=== PATIENT | female | born 1945 | race Caucasian/White ===

== ENCOUNTER → 2023-11-15 06:53 | Outpatient (REF) | payer MEDICARE, OTHER, SELFPAY ==
[2023-11-15 08:24] LABS: % Basophils 0.6 % (0-2); % Eosinophils 10.1 % (0-6); % Lymphocytes 41.4 % (20.5-51.1); % Monocytes 10.8 % (1.7-9.3); % Neutrophils 37.1 % (42.2-75.2); Absolute Eosinophils 0.5 10^3/uL (0-0.7); Absolute Monocytes 0.5 10^3/uL (0.1-0.6); Absolute Neutrophils 1.8 10^3/uL (1.4-6.5); Hematocrit 39.4 % (37.0-47.0); Hemoglobin 13.3 g/dL (12.0-16.0); Mean Corp Hgb Conc. 33.8 g/dL (33.0-37.0); Mean Corpuscular Hgb 30.5 pg (27.0-31.0); Mean Corpuscular Volume 90.4 fL (81.0-99.0); Mean Platelet Volume 9.5 fL (7.4-10.4); Nucleated Red Blood Cells % 0 %; Platelet Count 259 10^3/uL (130-400); Red Blood Cell Count 4.36 10^6/uL (4.20-5.40); Red Cell Dist. Width 12.7 % (11.5-14.5); White Blood Cell Count 4.9 10^3/uL (4.8-10.8)
[2023-11-15 08:41] LABS: ALT (SGPT) 19 U/L (0-35); AST (SGOT) 43 U/L (14-36); Albumin 4.3 g/dl (3.5-5.0); Alkaline Phosphatase 62 U/L (38-126); Blood Urea Nitrogen 20 mg/dl (7-17); Calcium 9.5 mg/dl (8.4-10.2); Carbon Dioxide 30 mmol/L (22-30); Chloride 102 mmol/L (98-107); Glucose 82 mg/dl (70-99); Potassium 4.5 mmol/L (3.5-5.1); Sodium 141 mmol/L (135-145); Total Bilirubin 0.8 mg/dl (0.2-1.3); Total Protein 7.3 g/dl (6.3-8.2); eGFR > 60.00
== END ==
LOC: REG 06:53
PROVIDERS: ATTENDING PHYSICIAN Internal Medicine Rheumatology; FAMILY PHYSICIAN Family Medicine; REFERRING PHYSICIAN Obstetrics & Gynecology Gynecology
DX: M25.552 Pain in left hip (principal); M81.0 Age-related osteoporosis without current pathological fracture; Z51.81 Encounter for therapeutic drug level monitoring
CPT/HCPCS: 36415; 80053; 85025

== ENCOUNTER → 2023-12-19 08:23 | Outpatient (REF) | payer MEDICARE, OTHER, SELFPAY | LOC: WDC 08:23 | PROVIDERS: ATTENDING PHYSICIAN Obstetrics & Gynecology Gynecology; FAMILY PHYSICIAN Family Medicine | DX: Z12.31 Encounter for screening mammogram for malignant neoplasm of breast (principal) | CPT/HCPCS: 77063; 77067 ==

== ENCOUNTER → 2023-12-22 10:06 | Outpatient (REF) | payer MEDICARE, OTHER, SELFPAY | LOC: RAD 10:06 | PROVIDERS: ATTENDING PHYSICIAN Nurse Practitioner Family; FAMILY PHYSICIAN Family Medicine | DX: M54.16 Radiculopathy, lumbar region (principal) | CPT/HCPCS: 72110 ==

== ENCOUNTER → 2024-01-16 06:27 | Outpatient (REF) | payer MEDICARE, OTHER, SELFPAY ==
[2024-01-16 08:16] LABS: % Basophils 0.6 % (0-2); % Eosinophils 6.7 % (0-6); % Immature Granulocytes 0.8 % (0-0.5); % Lymphocytes 43.5 % (20.5-51.1); % Monocytes 10.2 % (1.7-9.3); % Neutrophils 38.2 % (42.2-75.2); Absolute Eosinophils 0.4 10^3/uL (0-0.7); Absolute Lymphocytes 2.3 10^3/uL (1.2-3.4); Absolute Monocytes 0.5 10^3/uL (0.1-0.6); Hematocrit 38.6 % (37.0-47.0); Hemoglobin 13.4 g/dL (12.0-16.0); Mean Corp Hgb Conc. 34.7 g/dL (33.0-37.0); Mean Corpuscular Hgb 30.9 pg (27.0-31.0); Mean Corpuscular Volume 88.9 fL (81.0-99.0); Mean Platelet Volume 9.3 fL (7.4-10.4); Nucleated Red Blood Cells % 0 %; Platelet Count 315 10^3/uL (130-400); Red Blood Cell Count 4.34 10^6/uL (4.20-5.40); Red Cell Dist. Width 12.9 % (11.5-14.5); White Blood Cell Count 5.2 10^3/uL (4.8-10.8)
[2024-01-16 08:26] LABS: Erythrocyte Sed Rate 22 mm/hour (0-20)
[2024-01-16 08:29] LABS: ALT (SGPT) 20 U/L (0-35); AST (SGOT) 39 U/L (14-36); Albumin 4.4 g/dl (3.5-5.0); Alkaline Phosphatase 58 U/L (38-126); Blood Urea Nitrogen 19 mg/dl (7-17); Calcium 9.6 mg/dl (8.4-10.2); Carbon Dioxide 31 mmol/L (22-30); Chloride 100 mmol/L (98-107); Glucose 93 mg/dl (70-99); Potassium 4.5 mmol/L (3.5-5.1); Sodium 143 mmol/L (135-145); Total Bilirubin 0.3 mg/dl (0.2-1.3); Total Protein 7.3 g/dl (6.3-8.2); eGFR > 60.00
== END ==
LOC: REG 06:27
PROVIDERS: ATTENDING PHYSICIAN Internal Medicine Rheumatology; FAMILY PHYSICIAN Family Medicine
DX: M25.552 Pain in left hip (principal); M81.0 Age-related osteoporosis without current pathological fracture; Z51.81 Encounter for therapeutic drug level monitoring
CPT/HCPCS: 36415; 80053; 85025; 85652; 86140

== ENCOUNTER → 2024-02-07 07:54 | Outpatient (REF) | payer MEDICARE, OTHER, SELFPAY | LOC: RAD 07:54 | PROVIDERS: ATTENDING PHYSICIAN Internal Medicine Rheumatology; FAMILY PHYSICIAN Family Medicine; REFERRING PHYSICIAN Obstetrics & Gynecology Gynecology | DX: M81.0 Age-related osteoporosis without current pathological fracture (principal) | CPT/HCPCS: 77080 ==

== ENCOUNTER 2024-02-24 21:51 | Inpatient (IN) | payer MEDICARE, OTHER, SELFPAY ==
[2024-02-24] VITALS (8 sets, daily range): BP systolic 118–153; BP diastolic 54–87; BMI 18.9
[2024-02-24 17:57] LABS: ALT (SGPT) 19 U/L (0-35); AST (SGOT) 39 U/L (14-36); Albumin 4.6 g/dl (3.5-5.0); Alkaline Phosphatase 59 U/L (38-126); Blood Urea Nitrogen 21 mg/dl (7-17); Calcium 9.3 mg/dl (8.4-10.2); Carbon Dioxide 27 mmol/L (22-30); Chloride 103 mmol/L (98-107); Glucose 142 mg/dl (70-99); Potassium 4.8 mmol/L (3.5-5.1); Sodium 140 mmol/L (135-145); Total Bilirubin 0.6 mg/dl (0.2-1.3); Total Protein 7.7 g/dl (6.3-8.2); eGFR > 60.00
[2024-02-24] MEDS: NSS 1000 IV ×2 (20:07→23:09)
[2024-02-24 20:12] LABS: % Basophils 0.1 % (0-2); % Eosinophils 0.2 % (0-6); % Immature Granulocytes 0.2 % (0-0.5); % Lymphocytes 4.4 % (20.5-51.1); % Monocytes 2.3 % (1.7-9.3); % Neutrophils 92.8 % (42.2-75.2); Absolute Lymphocytes 0.4 10^3/uL (1.2-3.4); Absolute Monocytes 0.2 10^3/uL (0.1-0.6); Absolute Neutrophils 7.7 10^3/uL (1.4-6.5); Hemoglobin 13.3 g/dL (12.0-16.0); Mean Corp Hgb Conc. 34.1 g/dL (33.0-37.0); Mean Corpuscular Hgb 30.4 pg (27.0-31.0); Mean Platelet Volume 8.8 fL (7.4-10.4); Nucleated Red Blood Cells % 0 %; Platelet Count 279 10^3/uL (130-400); Red Blood Cell Count 4.38 10^6/uL (4.20-5.40); Red Cell Dist. Width 12.5 % (11.5-14.5); White Blood Cell Count 8.3 10^3/uL (4.8-10.8)
--- NOTE | 2024-02-24 20:14 | ED.GENMED ---
History of Present Illness
General
Chief Complaint: Abdominal Symptoms
Time Seen by Provider: 02/24/24 19:36
History of Present Illness
History of Present Illness:
TIME OF INITIAL ENCOUNTER: 7:30 PM
HPI: The patient initially came in because of vomiting with some degree of diarrhea and periods of nausea. However she also describes palpitations. She has had similar palpitations in the past. She has no history of atrial fibrillation. She
thinks she might be dehydrated.
EXAM:
GENERAL: Well appearing in no distress
HEENT: Moist oral mucosa
CARDIOVASCULAR: No murmurs, tachycardic heart rate, irregular rhythm, No chest wall tenderness
PULMONARY: No respiratory distress, breath sounds are clear and equal
ABDOMEN: Soft with no peritoneal signs, no tenderness
NEUROLOGIC: Excellent strength all extremities, no coordination deficits
PSYCHIATRIC: Appropriate mental status, normal insight and judgement
EXTREMITIES: Nontender, no edema, moves all extremities equally
SKIN: No rash, no lesions
NUMBER AND COMPLEXITY OF PROBLEMS ADDRESSED AT THE ENCOUNTER
� Chronic conditions affecting care: No significant past medical history
� Acute Exacerbation and/or Progression of Chronic Illness: This is an acute problem
� Differential Diagnosis includes: Dehydration, CARTER, electrolyte abnormality, atrial tachycardia/atrial fibrillation, thyroid disease
AMOUNT AND/OR COMPLEXITY OF DATA TO BE REVIEWED AND ANALYZED
� I performed an independent evaluation of and my interpretation is:
EKG: Sinus 131 however she frequently has atrial tachycardia/atrial fibrillation
CT:
X-rays:
Laboratory Studies: CBC and chemistries unremarkable, TSH normal
Other:
� Review of other/old records: I reviewed records, the patient had physical therapy regarding her left hip in April in
� Clinical information was obtained by an independent historian: I spoke to the at bedside
� Prescriptions/Medications Considered but not given:
� Further testing considered but not performed:
RISK OF COMPLICATIONS AND/OR MORBIDITY OR MORTALITY OF PATIENT MANAGEMENT
� Social determinants of health affecting care: Lives at home
� Discussion with other providers:
� Escalation of care including admission/observation vs risk of discharge considered: The patient initially came in because of nausea vomiting, and diarrhea. We gave a liter of fluid however my main concern is her heart rates in
the 150s at times. She probably has a sinus rhythm but frequently does have runs of atrial tachycardia/atrial fibrillation. She was placed on Cardizem bolus and drip. We did increase the dosage of the drip. Overall she feels improved and less
palpitations
ANY OTHER UPDATES:
Phy Exam
Physical Exam
Physical Exam:
See HPI
Course
Orders/Labs/Results
Orders:
Orders
02/24/24 17:34
Comprehensive Metabolic Panel Urgent
Magnesium Urgent
Comment: ADDON
TSH Reflex To Free T4 Urgent
Comment: ADD ON
02/24/24 19:41
Electrocardiogram (*1) Urgent
Reason for Study: Tachycardia
EKG- Treatment ONCE
0.9% Sodium Chloride 1000 ml [Nss] 1,000 ml IV BOLUS
02/24/24 20:05
Complete Blood Count/With Diff Urgent
02/24/24 20:07
Diltiazem HCl [Cardizem] 10 mg IV NOW STA
Diltiazem HCl [Cardizem] 10 mg IV NOW STA
02/24/24 20:09
Add On- LAB Urgent
Tests Added?: tsh reflex fT4
02/24/24 20:15
Add On- LAB Urgent
Tests Added?: magnesium
Diltiazem 125 mg/125 ml Nss [Cardizem] 125 mg in 125 ml IV PER PROTOCOL
Initial dose in mg/hr, then titrate:: 5
Titrate to keep:: Heart rate 80-100 bpm
Titrate by mg/hr:: 5 mg/hr
Frequency of titrations (minutes):: 15
Maximum dose in mg/hr:: 15
Abnormal Lab Results
02/24/24 02/24/24
17:34 20:05
Absolute Neuts (auto) 7.7 H 10^3/uL
(1.4-6.5)
Absolute Lymphs (auto) 0.4 L 10^3/uL
(1.2-3.4)
Neutrophils % 92.8 H %
(42.2-75.2)
Lymphocytes % 4.4 L %
(20.5-51.1)
BUN 21 H mg/dl
(7-17)
Creatinine 0.5 L mg/dL
(0.6-1.0)
Glucose 142 H mg/dl
(70-99)
AST 39 H U/L
(14-36)
02/24/24 20:05
02/24/24 17:34
Vital Signs
Initial and Last Documented VS:
Initial Vital Signs
Temp Pulse Resp BP Pulse Ox
37.1 C 91 16 153/85 100
02/24/24 17:27 02/24/24 17:27 02/24/24 17:27 02/24/24 17:27 02/24/24 17:27
Last Documented Vital Signs
Temp Pulse Resp BP Pulse Ox
37.1 C 89 16 142/63 100
02/24/24 17:27 02/24/24 20:30 02/24/24 20:34 02/24/24 20:30 02/24/24 20:30
*Critical Care Note
Total Time (30-74mins, 75-104mins- exclusive of procedures): Not Applicable
ED Attending Note
-
Portions of this chart may have been created with voice recognition software.� Occasional wrong word or��sound alike� substitutions may have occurred due to the inherent limitations of voice recognition software.
Discharge Plan
Departure
Patient Disposition: Admit
Date of Disposition: 02/24/24
Time of Disposition: :24
Presentation/result/management discussed w/ accepting MD/DO: Hospitalist
Discharge Problem:
Atrial tachycardia
Prescriptions:
No Action
hydrocodone-acetaminophen [Vicodin] 1 EACH tablet
1 tab PO Q6HPRN PRN (Reason: pain ) Qty: 12 0RF
Interventions
Interventions:
*Risk Screen - Suicide Last Done: 02/24/24 17:28
*Neglect/Abuse Screening Last Done: 02/24/24 17:28
HM-Uxykvf-Mqptwkqjjn Assessment Last Done: 02/24/24 20:36
Discharge Date and Time
Print Language: BOTSWANAN
[2024-02-24] MEDS: CARDIZEM 10 MG IV (20:17)
[2024-02-24] MEDS: CARDIZEM 125 IV (20:20)
[2024-02-24 20:48] LABS: Magnesium 1.9 mg/dl (1.6-2.3)
[2024-02-24 21:20] LABS: TSH Reflex To Free T4 0.77 uIU/ml (0.47-4.68)
--- NOTE | 2024-02-24 21:25 | HPS.HSE ---
Family Physician
-
Family Physician: Lucas Whitaker
Chief Complaint
-
Nausea vomiting diarrhea
History of Present Illness
78-year-old with no significant past medical history presented to us with nausea, non bloody vomiting, diarrhea since this afternoon. Her last episode of diarrhea and vomiting was around 5:00. Patient had salmon for dinner as today. For
breakfast she had bagel with peanut butter. Stated some abdominal cramps. Denied fever, chills, chest pain, short of breath. Patient also complained of palpitation. patient denied headache, dizziness or syncope. Patient denied dysuria hematuria.
Patient was noted sinus tachycardia in ER. On Cardizem drip. Admitting for further management
Medical History
Past Medical History
Past Medical History: Reports None
Past Surgical History: Reports Other
Additional Past Surgical History:
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
Wrist surgery
Social History
Tobacco: Non-smoker
Alcohol: Daily
Drug: None
Personal:
Living: With Family
Family History
Family History: Not pertinent
Allergies / Home Medications
Allergies reflects when Allergies were last updated in [employer].
Home Medications with original date entered in [employer]
Allergy/Medication List:
Allergies
Allergy/AdvReac Type Severity Reaction Status Date / Time
No Known Allergies Allergy Unverified 07/07/18 16:33
Home Medications
hydrocodone 5 mg-acetaminophen 300 mg tablet (Vicodin) 1 tab PO Q6HPRN PRN pain #12 tabs 07/07/18
Review of Systems
-
Constitutional: Reports No Symptoms
EENT: Reports No Symptoms
Respiratory: Reports No Symptoms
Cardiac: Reports Palpitations
Abdomen/GI: Reports Abdominal Pain, Nausea, Vomiting and Diarrhea
: Reports No Symptoms
Musculoskeletal: Reports No Symptoms
Skin: Reports No Symptoms
Neurological: Reports No Symptoms
Endocrine: Reports No Symptoms
Hematologic/Lymphatic: Reports No Symptoms
Psych: Reports No Symptoms
Physical Exam
Vital Signs
Vital Signs
Temp Pulse Resp BP Pulse Ox
98.8 F 89 16 142/63 100
02/24/24 17:27 02/24/24 20:30 02/24/24 20:34 02/24/24 20:30 02/24/24 20:30
Physical Exam
General: Well Developed, Well Nourished and No Apparent Distress
HEENT: NormoCephalic, Moist mucous membranes and Atraumatic
Respiratory: Clear
Cardiac: S1/S2 and Regular Rhythm; No Murmur or Rub
GI: Soft, Non Tender, Non Distended and Normal Bowel Sounds; No Organomegaly
Rectal: Deferred by Provider
Musculoskeletal: No Clubbing, No Cyanosis and No Edema
Skin: No Rash
Neuro: AO x 3 and Nonfocal/grossly intact
Psych: Calm
Laboratory Results
-
02/24/24 20:05
02/24/24 17:34
Laboratory Results
Total Bilirubin 0.6 mg/dl (0.2-1.3) 02/24/24 17:34
AST 39 U/L (14-36) H 02/24/24 17:34
ALT 19 U/L (0-35) 02/24/24 17:34
Alkaline Phosphatase 59 U/L (38-126) 02/24/24 17:34
Data Reviewed
-
Lab Data: Labs Reviewed by me
Impression/Plan
-
# Nausea vomiting diarrhea likely viral gastroenteritis
-Clear liquid diet advance as tolerated
-Zofran as needed for nausea vomiting
-Stool cultures
-Obtain COVID and flu
# Sinus tachycardia/runs of A-fib
-Cardizem drip
-EKG with sinus tachycardia
-Cardiology consult
# DVT prophylaxis
-Lovenox subcu
# CODE STATUS
-Full code
--- NOTE | 2024-02-24 21:48 | W.PN.UPDATE ---
Update Note
Progress Note Update
This note serves as an addendum to the H&P by endless track vehicle supervisor CRISTINO Lillian PLUMMER
HPI
78F No prior HX arrhythmia seen at ER:
- initial present with 6 episodes of non bilious vomiting, nausea , non bloody non watery loose diarrhea
- reports palpitation with HR as high as 150s-160s. Mostly sinus, but has runs of A Fib / atrial tachycardia.
- ER gave Diltiazem bolus and drip. Increasing dose of drip, HR improved to 100s
- denied contact exposure , no recent travelling
PHX:
HX Atrial tachycardia
Reviewed VS: unremarkable
PE
GENERAL: NAD
HEENT: Moist oral mucosa
CVS: regular tachycardia
Lungs: clear and equal
Abdomen: Soft with no peritoneal signs, no tenderness
FLAKEBOARD LINE TENDER: Excellent strength all extremities, no coordination deficits
Psych: normal insight and judgement
Ext: Nontender, no edema, moves all extremities equally
SKIN: No rash, no lesions
Data
Nl CBC
BUN 21
Cr 0.5
Nl TSH
Pending Covid
EKG
SINUS TACHYCARDIA WITH PREMATURE SUPRAVENTRICULAR COMPLEXES
NONSPECIFIC ST ABNORMALITY
ABNORMAL ECG
NO PREVIOUS ECGS AVAILABLE
ASSESSMENT & PLAN
Clinically suspect acute viral GE
- clear liquid & ADAT
- supportive care with IVF, anti emetics
- stool for Noro virus
Runs of A Fib / atrial tachycardia.
Mostly ST with NSR
- check Mg
- on Diltiazem gtt
- CBC Card consult
DVT Px: LMWH
Full code
IVU
[2024-02-24 21:59] LABS: COVID-19 Antigen Negative (Negative)
--- NOTE | 2024-02-24 23:04 | PTCARENOTE ---
received patient from the ED. spouse at the bedside. AAOx3. independent oob. patient denies phil n/v. denies any cp/sob/palps. Cardizem gtt decreased to 5 ml/hr. HR SR 70s. bp 118/56. denies any lightheadedness/dizziness. educated patient to inform
RN with any changes. oriented to room. call mckeon within reach.
[2024-02-25 03:11] VITALS: BP 106/48
[2024-02-25 04:00] LABS: Hematocrit 35.3 % (37.0-47.0); Hemoglobin 12.3 g/dL (12.0-16.0); Mean Corp Hgb Conc. 34.8 g/dL (33.0-37.0); Mean Corpuscular Hgb 31.1 pg (27.0-31.0); Mean Corpuscular Volume 89.4 fL (81.0-99.0); Platelet Count 259 10^3/uL (130-400); Red Blood Cell Count 3.95 10^6/uL (4.20-5.40); Red Cell Dist. Width 12.5 % (11.5-14.5); White Blood Cell Count 5.6 10^3/uL (4.8-10.8)
[2024-02-25 04:19] LABS: Blood Urea Nitrogen 15 mg/dl (7-17); Calcium 8.4 mg/dl (8.4-10.2); Carbon Dioxide 26 mmol/L (22-30); Chloride 106 mmol/L (98-107); Estimated Creatinine Clearance 60 ml/min; Glucose 118 mg/dl (70-99); HDL Cholesterol 76 mg/dl; LDL Cholesterol, Calculated 94 mg/dl; Potassium 3.9 mmol/L (3.5-5.1); Sodium 139 mmol/L (135-145); Total Cholesterol 181 mg/dl (50-199); Triglyceride 55 mg/dl (10-149); Very Low Density Lipoprotein 11 mg/dl (0-30); eGFR > 60.00
[2024-02-25 04:50] LABS: TSH 0.69 uIU/ml (0.47-4.68)
--- NOTE | 2024-02-25 06:38 | PTCARENOTE ---
patient remained SR overnight 70s. bp stable. cardizem gtt maintained. IVF infusing at 80 ml/hr. no complaints.
[2024-02-25 07:17] VITALS: BP 112/59
[2024-02-25] MEDS: PEPCID 20 MG PO ×2 (08:29→19:39)
--- NOTE | 2024-02-25 09:38 | PTCARENOTE ---
Assumed care at 0700. Patient awake and alert. Denies nausea or diarrhea. IVF and Cardizem infusing per MAR. Tolerating clear liquid diet. NSR HR 70. VSS. at bedside, call mckeon in reach
[2024-02-25 11:06] VITALS: BP 112/59
--- NOTE | 2024-02-25 11:41 | PTCARENOTE ---
formed brown stool collected for culture
--- NOTE | 2024-02-25 13:22 | W.PN.HOSP.TC ---
Today's Communication/Plan
-
Monitor vital signs
see plan
Stool studies positive for norovirus, supportive care
echo
cardiology to see
Assessment / Plan
Assessment / Plan
General: Well Developed, Well Nourished and No Apparent Distress
HEENT: NormoCephalic, Moist mucous membranes and Atraumatic
Respiratory: Clear
Cardiac: S1/S2 and Regular Rhythm; No Murmur or Rub
GI: Soft, Non Tender, Non Distended and Normal Bowel Sounds
Musculoskeletal: No Edema
Skin: No Rash
Neuro: AO x 3 and Nonfocal/grossly intact
Psych: Calm
Nausea vomiting diarrhea likely viral gastroenteritis
Advance diet to regular, no further episodes
stool studies + for norovirus. patient lives at [facility] and she reported other people there had similar symptoms
supportive care
-Zofran as needed for nausea vomiting
-Stool cultures pending
-Obtain COVID and flu
# Sinus tachycardia/runs of A-fib
no hx of SVT
-Cardizem drip
-EKG with sinus tachycardia
-Cardiology consult
check echo
# DVT prophylaxis
-Lovenox subcu
# CODE STATUS
-Full code
Anticipated Discharge: 24 - 48 hours
Subjective/Interval History
-
Date of Service: February 25, 2024
denies pain
Objective Data
-
Labs:
Laboratory Results
02/25/24
03:16
WBC 5.6
Hgb 12.3
Hct 35.3 L
Plt Count 259
Sodium 139
Potassium 3.9
Chloride 106
Carbon Dioxide 26
BUN 15
Creatinine 0.5 L
Glucose 118 H
Calcium 8.4
Vital Signs:
Vital Signs
Temp Pulse Resp BP Pulse Ox
99.1 F 67 20 112/59 98
02/25/24 11:04 02/25/24 09:45 02/25/24 11:04 02/25/24 07:17 02/25/24 11:04
I&O
02/24/24 02/25/24 02/26/24
06:59 06:59 06:59
Intake Total 150 / 150
Balance 150 / 150
--- NOTE | 2024-02-25 13:47 | PTCARENOTE ---
stool positive for Norovirus. Enhanced precautions maintained. Patient no longer having symptoms
--- NOTE | 2024-02-25 14:15 | CON.CAR ---
Consultation
Consultation Request
Date/Time Consultation Requested: 02/25/2024
Date/Time Consultation Performed: 02/25/2024
Reason for Consultation: Tachycardia
Medical History
-
Chief Complaint: Nausea vomiting runs of atrial fibrillation
History of Present Illness:
Nicki is a 78-year-old woman with no significant past medical history presented to the ER via paramedics with nausea vomiting and palpitations. Patient was noted to have runs of atrial fibrillation and route from [employer] to the ER. Patient was
noted to have runs of nonsustained atrial fibrillations.
Patient's heart rate was fluctuating anywhere from 100s to 160s beats per minute. Patient was started on diltiazem drip.
Patient's atrial fibrillation dissipated and now she is back in normal sinus rhythm. Nausea vomiting has also subsided. Cardiology was consulted for the new onset of atrial fibrillation.
Past Medical History
Past Medical History: None
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
Social History
Tobacco: Non-Smoker
Alcohol: Daily
Drug: None
Personal:
Family History
Family History: Reviewed & Not Pertinent
Allergies / Home Medications
Allergy/AdvReac Type Severity Reaction Status Date / Time
No Known Allergies Allergy Unverified 07/07/18 16:33
�Medication �Instructions �Recorded �Confirmed �Type
hydrocodone 5 mg-acetaminophen 300 1 tab PO Q6HPRN PRN pain #12 tabs 07/07/18 Rx
mg tablet (Vicodin)
Review of Systems
-
All other systems: Negative unless noted
Physical Exam
Vital Signs
Temp Pulse Resp BP Pulse Ox
99.1 F 67 20 112/59 98
02/25/24 11:04 02/25/24 09:45 02/25/24 11:04 02/25/24 07:17 02/25/24 11:04
Lab Results
02/25/24 03:16
02/25/24 03:16
Physical Exam
General: Well Developed, Well Nourished and No Apparent Distress
HEENT: Normocephalic, Anicteric and Moist Mucous Membranes
Respiratory: Clear and Non Labored Respirations
Cardiac: S1/S2 and Regular Rhythm; Negative Murmur
GI: Soft, Non Tender and Non Distended
Musculoskeletal: No Clubbing, No Cyanosis and No Edema
Skin: Warm and Dry
Neuro: Awake, Alert, Oriented and AO x 3
Psych: Calm
Impression / Plan
-
78-year-old woman presented with nausea vomiting with gastroenteritis and was noted to have nonsustained episodes of atrial fibrillation.
Atrial fibrillation
-Onset was abrupt and dissipated spontaneously after few minutes with multiple recurrences noted.
-Patient was treated with IV diltiazem drip in the ER
-Diltiazem drip is discontinued as patient is back in normal sinus rhythm.
-Tachycardia is resolved now.
-Cardiology was consulted for possibility of atrial fibrillation and further workup.
-Patient's [id number] score is 3 for age and gender
-The episodes of atrial fibrillation appears to be provoked with nausea and vomiting.
-At this time we will start patient on low-dose diltiazem 120 mg once a day
-Will obtain echo in the morning to rule out any structural heart disease
-We will also consider long-term monitoring with [employer] mobile or home EKG devices. If there is any more recurrences of atrial fibrillation noted, we can consider starting anticoagulation therapy with Eliquis.
-Patient's episodes of atrial fibrillation was provoked and were nonsustained. It is not clear if anticoagulation therapy would be helpful for her at this time.
Gastroenteritis
-Nausea vomiting secondary to fish ingestion yesterday.
-Nausea vomiting is subsided and back to normal
Data Reviewed
-
EKG: Tracing Personally Visualized and interpreted
Radiology: Report Reviewed by me
Labs: Labs Reviewed by me
Old Records: Reviewed
[2024-02-25 15:16] VITALS: BP 117/59
[2024-02-25] MEDS: NSS 1000 IV (17:39)
[2024-02-25] MEDS: LOVENOX 40 MG SC (17:39)
[2024-02-25] MEDS: ZOFRAN 4 MG IV (17:46)
[2024-02-25] MEDS: TYLENOL 650 MG PO (17:46)
--- NOTE | 2024-02-25 18:07 | PTCARENOTE ---
Patient complaints of mild nausea, tearful. Tylenol and Zofran given
[2024-02-25 19:30] VITALS: BP 131/68
[2024-02-25 23:35] VITALS: BP 114/56
--- NOTE | 2024-02-26 00:38 | PTCARENOTE ---
Patient NSR on monitoring specialist; IVF infusing; Patient OOB to bathroom to void without assistance; Patient denies pain at this time but does report nausea, no vomiting; Call mckeon within reach; Enhanced precautions maintained; Plan of care ongoing
[2024-02-26 04:34] VITALS: BP 134/74
[2024-02-26 04:58] LABS: % Basophils 0.3 % (0-2); % Eosinophils 5.5 % (0-6); % Immature Granulocytes 0.3 % (0-0.5); % Monocytes 17.7 % (1.7-9.3); % Neutrophils 51.2 % (42.2-75.2); Absolute Eosinophils 0.2 10^3/uL (0-0.7); Absolute Lymphocytes 0.9 10^3/uL (1.2-3.4); Absolute Monocytes 0.6 10^3/uL (0.1-0.6); Absolute Neutrophils 1.8 10^3/uL (1.4-6.5); Hematocrit 35.1 % (37.0-47.0); Hemoglobin 11.8 g/dL (12.0-16.0); Mean Corp Hgb Conc. 33.6 g/dL (33.0-37.0); Mean Corpuscular Hgb 30.8 pg (27.0-31.0); Mean Corpuscular Volume 91.6 fL (81.0-99.0); Mean Platelet Volume 8.9 fL (7.4-10.4); Nucleated Red Blood Cells % 0 %; Platelet Count 243 10^3/uL (130-400); Red Blood Cell Count 3.83 10^6/uL (4.20-5.40); Red Cell Dist. Width 12.7 % (11.5-14.5); White Blood Cell Count 3.4 10^3/uL (4.8-10.8)
[2024-02-26 05:36] LABS: ALT (SGPT) 15 U/L (0-35); AST (SGOT) 28 U/L (14-36); Albumin 3.2 g/dl (3.5-5.0); Alkaline Phosphatase 52 U/L (38-126); Blood Urea Nitrogen 10 mg/dl (7-17); Calcium 8.1 mg/dl (8.4-10.2); Carbon Dioxide 25 mmol/L (22-30); Chloride 110 mmol/L (98-107); Estimated Creatinine Clearance 60 ml/min; Glucose 91 mg/dl (70-99); Potassium 3.7 mmol/L (3.5-5.1); Sodium 142 mmol/L (135-145); Total Bilirubin 0.1 mg/dl (0.2-1.3); Total Protein 5.8 g/dl (6.3-8.2); eGFR > 60.00
[2024-02-26] MEDS: NSS IV (06:37)
--- NOTE | 2024-02-26 08:00 | PTCARENOTE ---
Assumed care of pt from prev nsg shift; Pt AAOx3 w/no c/o CP or SOB. Pt no longer nauseous or having diarrhea. Pt's VS stable w/HR in the 70's & BP 144/63. Pt remains SR on telemetry monitoring. Plan of care ongoing.
--- NOTE | 2024-02-26 08:10 | PTCARENOTE ---
Assumed care of pt from prev nsg shift; Pt AAOx3 w/no c/o CP or SOB this AM. Pt's Vs stable w/HR in the 70's-80's & BP 99/51 this AM. Pt remains in controlled Afib w/occas V-pacing on telemetry monitoring. Pt advised of plan of care for the day.
This RN explained the importance of increasing activity level as tolerated & explained after pt's ordered CXR she will need to be OOB to [facility] for some time today. Also explained to pt the need to D/C purewick & try to use BSC & BR instead. Pt
verbalized understanding. Pt w/call mckeon within reach & plan of care ongoing.
[2024-02-26 09:16] VITALS: BP 144/63
[2024-02-26] MEDS: PEPCID 20 MG PO (09:19)
--- NOTE | 2024-02-26 10:16 | W.PN.CD ---
Today's Communication / Plan
-
Start diltiazem 120 mg daily
Start apixaban 5 mg twice daily and await case management pricing
Okay for discharge if echo is unremarkable
Impression / Plan
-
78-year-old woman presented with nausea vomiting with gastroenteritis and was noted to have nonsustained episodes of atrial fibrillation.
Atrial fibrillation
-Onset was abrupt and dissipated spontaneously after few minutes with multiple recurrences noted. Patient also notes she has had similar symptoms in the past.
-Patient was treated with IV diltiazem drip in the ER
-Diltiazem drip is discontinued as patient is back in normal sinus rhythm.
-Tachycardia is resolved now.
-Cardiology was consulted for possibility of atrial fibrillation and further workup.
-Patient's [id number] score is 3 for age and gender
-The episodes of atrial fibrillation appears to be provoked with nausea and vomiting.
-At this time we will start patient on low-dose diltiazem 120 mg once a day
-Will obtain echo today to rule out any structural heart disease
-We will also ask case management to neely HUE's
Gastroenteritis
-Nausea vomiting is subsided and back to normal
Subjective: Feels well today. No episodes of atrial fibrillation overnight.
Physical Exam
Vital Signs/Labs
Vital Signs
Temp Pulse Resp BP Pulse Ox
98.4 F 75 20 144/63 99
02/26/24 09:17 02/26/24 09:16 02/26/24 09:17 02/26/24 09:16 02/26/24 09:17
02/25/24 02/26/24 02/27/24
06:59 06:59 06:59
Actual Weight 49.9 kg
02/26/24 04:40
02/26/24 04:40
Magnesium 1.9 mg/dl (1.6-2.3) 02/24/24 17:34
Triglycerides 55 mg/dl (10-149) 02/25/24 03:16
LDL Cholesterol, Calc 94 mg/dl 02/25/24 03:16
VLDL Cholesterol, Calc 11 mg/dl (0-30) 02/25/24 03:16
HDL Cholesterol 76 mg/dl 02/25/24 03:16
TSH 0.69 uIU/ml (0.47-4.68) 02/25/24 03:16
Physical Exam
Constitutional: No acute distress and Comfortable
Cardiovascular: Rhythm & rate is regular, Pedal edema is absent, S1S2 is normal and Murmur/rub/gallop absent
Respiratory: Respiratory effort normal and Lungs clear to auscul.
Data Reviewed
-
Date of Service: February 26, 2024
Medical Decision Making: Reviewed Test Results, Independent Historian Assessment, Test Interpretation and Review of Case with other Provider
EKG: Report Reviewed by me
Labs: Labs Reviewed by me
--- NOTE | 2024-02-26 12:17 | CM ---
Reviewed chart. Met with and Mrs. Flood to review discharge plans. She states prior to admission she resides with her spouse in an apartment at [facility]. She states she has been there five years. She states prior to
admission she was independent with ambulation and adls. She states she does not have any DME in the home. She states she has a prescription plan with [facility] and uses [facility]. Telephone call to her prescription plan, ([phone]) to check
on co-pay for Eliquis and Xarelto. She is still in her deductible stage. So her Eliquis 5 mg po bid co-pay would be $519.97 a month and Xarelto 10 mg po daily is $513.41. She can use the one month free coupon for either Eliquis or Xarelto. Will
place the one month free coupon in her red discharge folder. Medical work-up in progress. The discharge plan is to return home with her spouse when medically stable.
[2024-02-26 12:38] VITALS: BP 159/71
[2024-02-26] MEDS: CARDIZEM CD 120 MG PO (12:40)
--- NOTE | 2024-02-26 13:08 | W.PN.HOSP.TC ---
Addendum entered and electronically signed by Sam Ledezma MD 02/26/24 14:46:
Echocardiogram without any acute abnormality. discussed with cardiology. Discharge home
Time of discharge 36 minutes
Original Note:
Today's Communication/Plan
-
monitor vitals
see plan
cw cardizem,eliquis
echo pending, if normal then can likely go
supportive care for + norovirus. doesn't have much GI symtoms anymore
Assessment / Plan
Assessment / Plan
General: Well Developed, Well Nourished and No Apparent Distress
HEENT: NormoCephalic, Moist mucous membranes and Atraumatic
Respiratory: Clear
Cardiac: S1/S2 and Regular Rhythm; No Murmur or Rub
GI: Soft, Non Tender, Non Distended and Normal Bowel Sounds
Musculoskeletal: No Edema
Skin: No Rash
Neuro: AO x 3 and Nonfocal/grossly intact
Psych: Calm
Nausea vomiting diarrhea likely gastroenteritis from norovirus
Advance diet to regular, no further episodes
stool studies + for norovirus. patient lives at [facility] [place] and she reported other people there had similar symptoms
supportive care
-Zofran as needed for nausea vomiting
-Stool cultures pending; no WNC in stool
-Obtain COVID and flu
# paroxysmal afib
now on PO cardizem
CHADVASC 3; started eliquis
-now in NSR
-Cardiology following
check echo; if normal then can likely dc today
# DVT prophylaxis
-eliquis
# CODE STATUS
-Full code
Anticipated Discharge: Today
Subjective/Interval History
-
Date of Service: February 26, 2024
denies nausea
Objective Data
-
Labs:
Laboratory Results
02/26/24
04:40
WBC 3.4 L
Hgb 11.8 L
Hct 35.1 L
Plt Count 243
Sodium 142
Potassium 3.7
Chloride 110 H
Carbon Dioxide 25
BUN 10
Creatinine 0.4 L
Glucose 91
Calcium 8.1 L
Total Bilirubin 0.1 L
AST 28
ALT 15
Alkaline Phosphatase 52
Vital Signs:
Vital Signs
Temp Pulse Resp BP Pulse Ox
99.0 F 78 20 159/71 98
02/26/24 12:40 02/26/24 12:40 02/26/24 12:40 02/26/24 12:40 02/26/24 12:40
I&O
02/25/24 02/26/24 02/27/24
06:59 06:59 06:59
Intake Total 150 / 150 960 / 960
Balance 150 / 150 960 / 960
--- NOTE | 2024-02-26 14:48 | W.DCSUMMARY ---
Discharge Summary
Discharge Data
Date of Admission: 02/24/24
Date of Discharge: 02/26/24
-
Pending Results: No
Hospital Course
78-year-old female came to the hospital with intractable nausea vomiting and diarrhea. While patient was in the ED she was in intermittent atrial fibrillation. Her stool studies were positive for norovirus which was treated conservatively with
fluids. Over time her GI symptoms continue to improve and she was able to tolerate regular diet. For her intermittent atrial fibrillation she was initially started on Cardizem drip which was later transitioned to p.o. Cardizem. Since her Servando
Vasc score was 3, she was started on Eliquis. Her echocardiogram was also done which did not show any acute abnormality. Cardiology instructed patient to follow-up with them outpatient. Once her symptoms continue to improve, she was then
discharged home with instructions to follow-up with all her physicians outpatient.
Discharge Plan
-
Patient Disposition: Home (Routine Discharge)
Discharge Diagnosis/Procedures: Nausea vomiting diarrhea likely gastroenteritis from norovirus
Paroxysmal afib
Diet: As tolerated
Activity: As tolerated
Driving Restrictions: As prior to admission
Bathing Restrictions: None
Referrals:
Lucas Whitaker MD [Family Provider] - in less than 1 week
Jimena Garcia CRNP [Specified Professional Personl] - 03/25/24 11:20 am
Prescriptions:
New
famotidine 20 mg Tablet
20 mg PO BID Qty: 60 0RF
diltiazem HCl 120 mg Capsule,Extended Release 24hr
120 mg PO DAILY Qty: 30 0RF
Eliquis 5 mg Tablet
5 mg PO BID Qty: 60 0RF
Continued
hydrocodone-acetaminophen [Vicodin] 1 EACH tablet
1 tab PO Q6HPRN PRN (Reason: pain ) Qty: 12 0RF
Discharge Orders:
Discharge Patient (As Directed); Ordered 02/26/24
Ordered By: Sam Ledezma
Care Plan Goals
Care Plan Goals:
Problem: Readiness for enhanced knowledge related to diagnosis and treatment plan
Goal: Understand your diagnosis and treatment plan needs, including medications if applicable.
Instructions: Know your diagnosis, underlying causes and treatment plan options, including medications if applicable. Consult with your health care team to learn about your diagnosis and treatment plan, including medications if applicable.
Discharge Date and Time
Discharge Date/Time: 02/26/24 16:30
Print Language: MAORI
--- NOTE | 2024-02-26 16:30 | PTCARENOTE ---
Pt D/C'd to home w/spouse providing transportation. 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
== END 2024-02-26 16:30 | disposition home or self-care (01) | DRG 392 ==
LOC: IVU 21:51
PROVIDERS: Emergency Medicine; Registered Nurse; ADMITTING PHYSICIAN Internal Medicine; ATTENDING PHYSICIAN Internal Medicine; CONSULT PHYSICIAN Internal Medicine Cardiovascular Disease; EMERGENCY PHYSICIAN Emergency Medicine; FAMILY PHYSICIAN Family Medicine
DX: A08.11 Acute gastroenteropathy due to Norwalk agent (principal); I47.19 Other supraventricular tachycardia; I48.0 Paroxysmal atrial fibrillation; Z11.52 Encounter for screening for COVID-19
CPT/HCPCS: 80048; 80053; 80061; 83735; 84443; 85025; 85027; 87045; 87046; 87427; 87502; 87798; 87811; 89055; 93005; 93306; 96365; 96366; 99285

== ENCOUNTER → 2024-11-25 09:26 | Outpatient (REF) | payer MEDICARE, OTHER, SELFPAY | LOC: RAD 09:26 | PROVIDERS: ATTENDING PHYSICIAN Internal Medicine Rheumatology; FAMILY PHYSICIAN Family Medicine | DX: M19.90 Unspecified osteoarthritis, unspecified site (principal); M25.561 Pain in right knee | CPT/HCPCS: 73560; 73565 ==

== ENCOUNTER → 2024-11-29 06:46 | Outpatient (REF) | payer MEDICARE, OTHER, SELFPAY ==
[2024-11-29 07:37] LABS: Hematocrit 42.0 % (37.0-47.0); Hemoglobin 13.3 g/dL (12.0-16.0); Mean Corp Hgb Conc. 31.7 g/dL (33.0-37.0); Mean Corpuscular Volume 90.3 fL (81.0-99.0); Nucleated Red Blood Cells % 0 %; Platelet Count 275 10^3/uL (130-400); Red Cell Dist. Width 12.4 % (11.5-14.5)
[2024-11-29 08:08] LABS: ALT (SGPT) 18 U/L (0-35); AST (SGOT) 35 U/L (14-36); Albumin 4.4 g/dl (3.5-5.0); Alkaline Phosphatase 51 U/L (38-126); Blood Urea Nitrogen 19 mg/dl (7-17); Calcium 10.2 mg/dl (8.4-10.2); Carbon Dioxide 30 mmol/L (22-30); Chloride 104 mmol/L (98-107); Glucose 90 mg/dl (70-99); Potassium 4.7 mmol/L (3.5-5.1); Sodium 141 mmol/L (135-145); Total Protein 7.5 g/dl (6.3-8.2); eGFR > 60.00
== END ==
LOC: REG 06:46
PROVIDERS: ATTENDING PHYSICIAN Internal Medicine Rheumatology; FAMILY PHYSICIAN Family Medicine
DX: M25.552 Pain in left hip (principal); M81.0 Age-related osteoporosis without current pathological fracture; Z51.81 Encounter for therapeutic drug level monitoring
CPT/HCPCS: 36415; 80053; 85025

== ENCOUNTER → 2024-12-19 12:33 | Outpatient (REF) | payer MEDICARE, OTHER, SELFPAY | LOC: WDC 12:33 | PROVIDERS: ATTENDING PHYSICIAN Obstetrics & Gynecology Gynecology; FAMILY PHYSICIAN Family Medicine | DX: Z12.31 Encounter for screening mammogram for malignant neoplasm of breast (principal); Z12.39 Encounter for other screening for malignant neoplasm of breast | CPT/HCPCS: 77063; 77067 ==

== ENCOUNTER → 2025-01-14 06:29 | Outpatient (REF) | payer MEDICARE, OTHER, SELFPAY ==
[2025-01-14 08:58] LABS: HDL Cholesterol 90 mg/dl; LDL Cholesterol, Calculated 131 mg/dl; Very Low Density Lipoprotein 24 mg/dl (0-30)
== END ==
LOC: REG 06:29
PROVIDERS: ATTENDING PHYSICIAN Physician Assistant
DX: I48.0 Paroxysmal atrial fibrillation (principal); I10 Essential (primary) hypertension; M72.2 Plantar fascial fibromatosis; M81.0 Age-related osteoporosis without current pathological fracture; E78.00 Pure hypercholesterolemia, unspecified; Z68.1 Body mass index [BMI] 19.9 or less, adult; Z23 Encounter for immunization
CPT/HCPCS: 36415; 80061

== ENCOUNTER 2025-02-06 15:57 | Outpatient (RCR) | payer MEDICARE, OTHER, SELFPAY | END 2025-02-06 23:59 | disposition home or self-care (01) | LOC: RPT 15:57 | PROVIDERS: ATTENDING PHYSICIAN Internal Medicine Rheumatology; FAMILY PHYSICIAN Family Medicine | DX: M62.81 Muscle weakness (generalized) (principal); Z73.6 Limitation of activities due to disability; R26.89 Other abnormalities of gait and mobility; Z78.9 Other specified health status; M54.31 Sciatica, right side; Z91.81 History of falling | CPT/HCPCS: 97110; 97112; 97162; 97530 ==

== ENCOUNTER 2025-03-07 08:12 | Outpatient (RCR) | payer MEDICARE, OTHER, SELFPAY | END 2025-03-07 23:59 | disposition home or self-care (01) | LOC: RPT 08:12 | PROVIDERS: ATTENDING PHYSICIAN Internal Medicine Rheumatology; FAMILY PHYSICIAN Family Medicine | DX: M62.81 Muscle weakness (generalized) (principal); Z73.6 Limitation of activities due to disability; R26.89 Other abnormalities of gait and mobility; Z78.9 Other specified health status; M54.31 Sciatica, right side; Z91.81 History of falling | CPT/HCPCS: 97110; 97530 ==